=== PATIENT | male | born 1945 | race Caucasian/White ===

== ENCOUNTER 2016-06-20 21:29 | Observation (INO) | payer OTHER ==
--- NOTE | ~2016-06-20 | HP ---
History And Physical [place] [address] [facility] [place]. [address] NAME: MAXIMO MANNING : 45 STATUS : ADM Sarai PAT#: [id number] AGE: 70 ADM/REG DATE : 06/20/16 MR#: [id number] REPORT SERV DATE: 06/21/16 DICTATED BY: NEGIN MARTINEZ DATE: 06/21/16 REPORT STATUS : Draft TRANSCRIBED BY: MODL DATE: 06/21/16 DATE OF ADMISSION: 06/20/2016 CHIEF COMPLAINT: Irregular heartbeat; found to be in atrial fibrillation with RVR. PRIMARY CARE PHYSICIAN: Dr. Florez. GLOST KILN PLACER: None. HISTORY OF PRESENT ILLNESS: This is a pleasant 70-year-old white male with a history of hypertension. He also reports that he snores. He has no other medical issues. He reports that he is quite active and is still working fixing cars along with mowing the lawn and has done quite well. He notes that he had an episode of an irregular heartbeat approximately one month ago that awakened him from sleep. He again had another episode that awakened him from sleep late Tuesday night. He finally had an episode from when he awakened early Tuesday morning and continued to feel out of rhythm on Tuesday. Associated symptoms since yesterday morning when he first awakened, he did feel tightness in his neck, and he also felt anxious and extremely fatigued. He reports that he went to his daughter's house who is a nurse practitioner, and she said that he had an irregular heartbeat and urged him to go to the emergency department yesterday evening, which he did. He reports his symptoms are resolved except he thinks he may be still out of rhythm, but he has no associated symptoms at this present time. He reports no chest pain or neck tightness except associated with the palpitations yesterday morning. He denies any other symptoms. He denies any recent illness. He denies any paroxysmal nocturnal dyspnea, orthopnea, or ankle edema. PAST MEDICAL HISTORY: 1. Hypertension, on medication. 2. Cataracts. 3. Self reported bradycardia with the usual resting heartbeat in the low 50s. PAST SURGICAL HISTORY: None. SOCIAL HISTORY: . He still works repairing and selling cars. He reports that he is active with yard work and still weed eats and mows the lawn with the push mower, which he was doing recently and has no symptoms with this. He has no formal exercise program, however. Former tobacco use, quitting 20 years ago. He denies any illicit drugs. FAMILY HISTORY: Noncontributory. REVIEW OF SYSTEMS: The patient denies ever having a cardiac evaluation. While he snores, he reports he has never had a sleep study. He denies any history of renal insufficiency, and reports he had blood work with Dr. Florez 3 months ago and says everything was reportedly normal. As above per HPI, all other systems reviewed and negative. ALLERGIES: NO KNOWN DRUG ALLERGIES. History And Physical [address] [address] NAME: MAXIMO MANNING : 45 STATUS : ADM Sarai PAT#: [id number] AGE: 70 ADM/REG DATE : 06/20/16 MR#: [id number] REPORT SERV DATE: 06/21/16 DICTATED BY: NEGIN MARTINEZ DATE: 06/21/16 REPORT STATUS : Draft TRANSCRIBED BY: MAIA DATE: 06/21/16 HOME MEDICATIONS: Reviewed and is as follows: 1. Ibuprofen 600 mg p.o. every 6 hours as needed for back pain. 2. Losartan/HCTZ 50/12.5 mg tablet one tablet p.o. daily. PHYSICAL EXAMINATION: VITAL SIGNS: Oxygen saturation 96% on room air, weight 87.54 kg, temperature 98.2, pulse 77, respiratory rate 20, blood pressure 122/66. GENERAL: Well developed, well nourished. In no apparent distress. HEENT: Head normocephalic. No xanthelasma. Sclera clear, anicteric. Moist mucous membranes without pallor. No lymphadenopathy. No deficits noted. NECK: Trachea midline. Supple. No thyromegaly, JVD, or bruits. RESPIRATORY: Unlabored respirations. Breath sounds clear bilaterally to posterior auscultation. No wheezes, rhonchi or crackles. CARDIOVASCULAR: Irregularly irregular. No murmur, rub, or gallop appreciated. No chest wall tenderness to palpation. ABDOMEN: Soft, nontender, and nondistended. Active bowel sounds auscultated x4 quadrants. No organomegaly and no masses. No aortic bruit. EXTREMITIES: DP/PT and radial pulses 2+ bilaterally. No clubbing, cyanosis, or edema. SKIN: Warm, dry, intact. No rash. Normal turgor. MUSCULOSKELETAL: Moves all extremities in bed without difficulty. NEURO/PSYCH: Alert and oriented x3 with no acute distress. Affect appropriate to current situation. LABORATORY DATA: BMP: Sodium 140, potassium slightly low at 3.7, creatinine elevated at 1.32, glucose elevated at 205 and this was after he ate dinner, and magnesium 2.3. CBC: White blood cell count 8.1, hemoglobin elevated at 17, hematocrit elevated at 48.1, platelets 343. Troponin 0.05 x2, BNP 232.4. TSH normal at 1.3, free T4 normal at 1.02. LFTs are unremarkable. STUDIES: 1. Chest x-ray: Normal two-view chest x-ray. 2. EKG, I personally interpreted:. a. Atrial fibrillation rate 102 with a possible LAFB and with nonspecific ST changes. Possible competing junctional pacemaker. b. Atrial fibrillation, rate 75 with left axis deviation, no ischemia. Possible competing junctional pacemaker. c. Telemetry atrial fibrillation, rate 70s. ASSESSMENT AND PLAN: 1. Paroxysmal atrial fibrillation. The patient continues to be in atrial fibrillation at this time with his heart rate in the 70s. His CHADS2-VASc score would be 2 for hypertension and age. Eliquis has been initiated already. I will keep him n.p.o. for a ALEX and cardioversion at 3:[address] Arrieta today. We will continue Eliquis on discharge. candy department manager to assist us with filling this prescription. I will also advise the patient to follow up with his primary care provider for consideration of a sleep study as he reports that he snores with some regularity per . He will be History And Physical [address] [address] NAME: MAXIMO MANNING : 45 STATUS : ADM Sarai PAT#: [id number] AGE: 70 ADM/REG DATE : 06/20/16 MR#: [id number] REPORT SERV DATE: 06/21/16 DICTATED BY: NEGIN MARTINEZ DATE: 06/21/16 REPORT STATUS : Draft TRANSCRIBED BY: MAIA DATE: 06/21/16 seen by [place] emergency department supervisor nut processing for atrial fibrillation observation unit, Dr. Hassan. We will arrange follow up with Dr. Hassan in three weeks. Please note that the patient reports underlying usual resting heart rate in the low 50s. 2. Hypertension. This is well controlled on current medication losartan/HCTZ. The patient is to check blood pressure periodically, record and bring in to primary care provider. He will continue a low-sodium diet. 3. Mild renal insufficiency. Creatinine is 1.32. I do not have baseline creatinine here. Of note, the patient is on losartan/HCTZ. I will discontinue the HCTZ component of his blood pressure medication. He is to follow up with his primary care provider for further management and monitoring of mild renal insufficiency. 4. Snoring. The patient has been instructed to have testing done for suspected possible obstructive sleep apnea. The patient reports understanding and agreement with this plan. 5. Mildly abnormal flat troponin. Troponin 0.05 x2. The patient denies any chest pain with exertion. He reports he had neck tightness yesterday morning when his heart rate was in the 100s with atrial fibrillation, otherwise he has never had any symptoms. He is symptom free at this present time. He is to follow up with primary care provider. No evidence of ACS. 6. Hyperglycemia. Blood sugar was noted to be 205 yesterday evening after he ate dinner. He is to follow up with primary care provider for further monitoring and treatment. Further recommendations forthcoming per rounding supervisor nut processing for atrial fibrillation observation unit, Dr. Hassan. RAFFI/MAIA Negin Martinez NP / [id number]
--- NOTE | ~2016-06-20 | OP ---
Record Of Operation [facility] [address] [place]. [address] NAME: MAXIMO MANNING : 45 STATUS : DIS Sarai PAT#: [id number] AGE: 70 ADM/REG DATE : 06/20/16 MR#: [id number] REPORT SERV DATE: 06/21/16 DICTATED BY: BEAR SALAMANCA DATE: 06/21/16 REPORT STATUS : Draft TRANSCRIBED BY: MODL DATE: 06/21/16 DATE OF PROCEDURE: 06/21/2016 ALEX CARDIOVERSION REPORT INDICATIONS: This is a 70-year-old male with new onset atrial fibrillation and rapid ventricular response. He is on therapeutic anticoagulation with Eliquis. Informed consent was obtained, signed, and on the chart prior to proceeding. A time-out was performed. Sedation was per Anesthesia, and esophageal intubation was without difficulty. TECH: TD. The overall quality of study was good. FINDINGS: CHAMBERS: 1. Left atrium was grossly normal in size. Left atrial appendage was examined with multiple angulations and there was no thrombus identified. Left atrial appendage color Doppler findings were normal and spectral Doppler velocity exceeded 40 cm/second. 2. The left ventricle was normal in size with a visually estimated LVEF of 55% to 60%. There were no regional wall motion abnormalities. 3. The right atrium was normal in size. Superior and inferior vena cava appeared normal. There was no mass or thrombus seen. 4. The right ventricle was normal in size and systolic function. VALVES: 1. The aortic valve morphology was trileaflet. The aortic leaflets were thickened with adequate mobility. There was mild-moderate eccentric aortic regurgitation seen. 2. The mitral valve morphology was normal with mildly thickened leaflets and adequate mobility. There was trace mitral regurgitation. 3. The pulmonic valve was grossly normal with adequate mobility. There was no significant pulmonic regurgitation. 4. The tricuspid valve morphology was normal with fully mobile leaflets. There was trace tricuspid regurgitation. OTHER: The interatrial septum was examined with multiple angulations and there was hyper- lipomatous thickening noted. Interatrial septum was otherwise intact with no evidence of interatrial shunt seen. There was no pericardial effusion. The descending thoracic aorta and aortic arch were normal in caliber with mild complex atherosclerotic changes and no aneurysmal dilatation and no dissection. CARDIOVERSION: A single synchronized 200 joule biphasic energy shock was delivered with successful cardioversion to sinus rhythm. CONCLUSION: 1. No left atrial or left atrial appendage thrombus. 2. Successful cardioversion to sinus rhythm. Record Of Operation [facility] [place]. [address] NAME: MAXIMO MANNING : 45 STATUS : DIS Sarai PAT#: [id number] AGE: 70 ADM/REG DATE : 06/20/16 MR#: [id number] REPORT SERV DATE: 06/21/16 DICTATED BY: BEAR SALAMANCA. DATE: 06/21/16 REPORT STATUS : Draft TRANSCRIBED BY: MAIA DATE: 06/21/16 3. Intact interatrial septum. 4. Aortic valve sclerosis with mild-moderate regurgitation and no stenosis. 5. Normal LV size with preserved EF, 55% to 60%. AEA/MAIA Bear Salamanca M.D. / [id number] CC: Ella Torres, NILSA, INVENTORY CHECKER-BC
[2016-06-20 20:24] LABS: BASOPHILS ABSOLUTE 0.08 10/3/uL (0.0-0.16); EOSINOPHILS 2.5 %; ER CBC TAT 0 Hrs 10 Mins; HEMATOCRIT 48.1 % (40.0-51.0); IMMATURE GRANULOCYTES 0.5 %; IMMATURE GRANULOCYTES ABSOLUTE 0.04 10/3/uL (0.0-0.11); LYMPHOCYTES 31.2 %; LYMPHOCYTES ABSOLUTE 2.54 10/3/uL (0.67-4.30); MEAN CORPUS HGB CONC 35.3 g/dL (32.0-36.0); MEAN CORPUSCULAR HEMOGLOB 32.2 pg (26.0-34.0); MEAN CORPUSCULAR VOLUME 91.1 fL (80-100); MEAN PLATELET VOLUME 9.2 fL (9.2-13.0); MONOCYTES 5.4 %; MONOCYTES ABSOLUTE 0.44 10/3/uL (0.21-1.20); NEUTROPHILS 59.4 %; NEUTROPHILS ABSOLUTE 4.83 10/3/uL (2.02-8.40); PLATELET COUNT 343 10/3/uL (150-400); RBC DISTRIBUTION WIDTH 12.9 % (12.0-16.0); RED CELL COUNT 5.28 10/6/uL (4.7-6.1); WHITE BLOOD CELLS 8.1 10/3/uL (4.5-10.5)
[2016-06-20 20:25] LABS: MANUAL DIFF NO %
[2016-06-20 20:35] LABS: BUN (BLOOD UREA NITROGEN) 17 MG/DL (6-23); CALCIUM, SERUM 9.5 MG/DL (8.5-10.4); CHLORIDE, SERUM 104 MMOL/L (96-112); CO2 (CARBON DIOXIDE) 31 MMOL/L (24-34); CREATININE 1.32 MG/DL (0.70-1.30); GFR AFRICAN AMERICAN 63 ML/MIN (>=60); GFR NON AFRICAN AMERICAN 54 ML/MIN (>=60); SODIUM, SERUM 140 MMOL/L (135-148)
[2016-06-20 20:36] LABS: PARTIAL THROMBO TIME 25.5 SEC (22.5-37.2); PROTIME (NOT ORD) 12.8 SEC (12.0-14.5)
[2016-06-20 20:37] LABS: CHEST PAIN PROFILE TAT 0 Hrs 23 Mins; GLUCOSE, SERUM 205 MG/DL (60-99); POTASSIUM, SERUM 3.7 MMOL/L (3.5-5.3); TROPONIN I 0.05 NG/ML (<0.05)
[~2016-06-20 21:29] MED LIST: ADVIL PO; HYZAAR 50/12.51 TAB PO
[2016-06-21 00:31] LABS: ALBUMIN 4.2 G/DL (3.5-5.0); ALKALINE PHOSPHATASE 55 U/L (45-117); DIRECT BILIRUBIN < 0.1 MG/DL (0.0-0.4); FREE T4 1.02 NG/DL (0.76-1.46); INDIRECT BILIRUBIN(NOT ORDER) 0.2 MG/DL (0.1-0.9); SGOT(AST) 21 U/L (5-40); SGPT(ALT) 47 U/L (5-65); TOTAL BILIRUBIN 0.3 MG/DL (0-1.2); TOTAL PROTEIN 7.3 G/DL (6.0-8.5)
[2016-06-21] MEDS ORDERED: ELIQUIS 5 MG TAB5 MG PO (17:05)
== END 2016-06-21 17:25 | disposition home or self-care (01) ==
LOC: ER 21:29 → CDU1 21:47
PROVIDERS: Emergency Medicine
DX: I48.0 Paroxysmal atrial fibrillation (principal); I10 Essential (primary) hypertension; N28.9 Disorder of kidney and ureter, unspecified; R06.83 Snoring; I35.8 Other nonrheumatic aortic valve disorders; I35.1 Nonrheumatic aortic (valve) insufficiency; Z87.891 Personal history of nicotine dependence; Z79.1 Long term (current) use of non-steroidal anti-inflammatories (NSAID); Z79.899 Other long term (current) drug therapy
CPT/HCPCS: 71020; 80048; 80076; 83735; 83880; 84439; 84443; 84484; 85025; 85610; 85730; 92960; 93005; 93312; 93320; 93325; 96374; 96376; 99285; A9270-GY; G0378